=== PATIENT | female | born 1975 | race Caucasian/White ===

== ENCOUNTER 2016-10-12 12:37 | Emergency (ER) | payer BC ==
--- NOTE | 2016-10-12 13:28 | ERNOTE ---
Medical Problem HPI - General Chief Complaint: Upper Extremity Injury/Problem Time Seen by Provider: 10/12/16 12:55 Source: patient Exam Limitations: no limitations - Immun/Allergies/Home Medications Immunizations: IMMUNIZATION HX Immunizations Up to Date Yes History of Influenza Vaccine Yes Hx Pneumococcal Vaccination No Allergies/Adverse Reactions: Allergies theophylline anhydrous [From Reji-Dur] Allergy (Mild, Verified 10/12/16 12:45) Hives latex Adverse Reaction (Mild, Verified 10/12/16 12:45) Itching Home Medications: HOME MEDICATIONS Omeprazole [Prilosec] 20 mg PO BID 09/02/14 [Last Taken Unknown] Atorvastatin Calcium [Lipitor] 10 mg PO DAILY 11/23/15 [Last Taken Unknown] Benazepril HCl [Lotensin] 20 mg PO DAILY 11/23/15 [Last Taken Unknown] HYDROcodone/ACETAMINOPHEN [Hydrocodon-Acetaminoph 7.5-325] 1 each PO TID [Last Taken Unknown] LORazepam [Ativan] 1 mg PO DAILY 11/23/15 [Last Taken Unknown] Sertraline HCl [Zoloft] 50 mg PO DAILY 11/23/15 [Last Taken Unknown] Ibuprofen [Motrin] 800 mg PO TID PRN #21 tab 03/05/16 [Last Taken Unknown] Hydrochlorothiazide 50 mg PO DAILY 09/23/16 [Last Taken Unknown] Meloxicam [Mobic] 15 mg PO DAILY 09/23/16 [Last Taken Unknown] Potassium Citrate [Urocit-K] 20 meq PO BID 09/23/16 [Last Taken Unknown] tiZANidine HCL [Zanaflex] 4 mg PO DAILY 09/23/16 [Last Taken Unknown] Gabapentin 300 mg PO TID #90 capsule 10/12/16 [Last Taken Unknown] - History of Present History Narrative: Patient is here for left arm pain. She has worked at [employer] for over nine years. When she came back from having a hysterectomy in July she was assigned to a different position that involved reaching over head frequently and lifting about 6lbs. Starting the first day she started to have increasing pain that started in the left shoulder (points to trapezius area) and eventually radiated down her arm and into her left thumb. She denies any injury , she is right handed and never had similar symptoms. She saw her doctor in [place], a HEARING SCREEN COORDINATOR in the work comp clinic and another HEARING SCREEN COORDINATOR in [place]. She is frustrated as nobody did any testing and she feels her symptoms are related to the new job. She has tried ibuprofen, hydrocodone without much relieve Review of Systems - Review of Systems Constitutional: Absent: recent illness, fever, chills EYE: Absent: double vision ENT: Absent: nose congestion, sore throat Respiratory: Absent: shortness of breath, cough Cardiology: Absent: chest pain Gastrointestinal/Abdominal: Absent: nausea, vomiting Genitourinary: Present: no symptoms reported Musculoskeletal: Present: See HPI, neck pain Neurological: Present: See HPI. Absent: weakness - Patient's Past Medical History Patient History - Medical: Anxiety, Depression, GERD, Kidney stone Patient History - Cardiac/Respiratory: Hypertension, Hyperlipidemia Patient History - Cancer: No Hx of Cancer Patient History - Surgical Procedures: Hysterectomy, Urology Patient History - Other: None LMP (Calendar): 11/18/15 - Family History Mother Family History - Medical: Diabetes Type 2 Family History - Cardiac/Respiratory: No pertinent hx Father Family History - Medical: Arthritis Family History - Cardiac/Respiratory: Coronary Heart Disease Sister Family History - Medical: No pertinent hx, Hypothyroidism Family History - Cardiac/Respiratory: Hypertension - Social History Living Situations: home Abuse History: No History of abuse Psych History: Hx of Anxiety, Hx of Depression, Current tx/ever been on anti- depressants or anti-anxiety meds Smoking Status: Never smoker Alcohol Use: none Drug Use: none - Immunizations Immunizations Up to Date: Yes Hx Pneumococcal Vaccination: No History of Influenza Vaccine: Yes Physical Exam - Physical Exam General Appearance: Present: wd/wn, alert, no apparent distress, obese Eye Exam: Normal inspection: bilateral Neck: Present: normal inspection, tender lateral - left, muscle spasms, other - decreased ROM on rotation to right. Absent: tender posterior midline Respiratory: Present: no respiratory distress, normal breath sounds, no accessory muscle use, lungs clear Cardiovascular/Chest: Present: regular rate, rhythm, no murmur Back Exam: Present: normal inspection Extremity Exam: Present: normal inspection, non-tender Neurological Exam: Present: alert, oriented, normal mood/affect, no motor/ sensory deficits Skin Exam: Present: normal color, warm/dry ED Progress - Vital Signs Patient's Vital Signs:: I have reviewed the patient's vital signs. Vital Signs: Vital Signs 10/12/16 12:40 Temperature 36.4 C L Pulse Rate 125 H Respiratory 16 Rate Blood Pressure 177/97 O2 Sat by Pulse 99 Oximetry - X-Ray X-Ray #1 X-Ray: c-spine - no acute findings Interpretation: Reviewed by me - Progress/Reassessment Chief Complaint: Upper Extremity Injury/Problem Progress Note-Subjective: 10/12/16 13:33 discussed Xray results and plan Departure - Departure Clinical Impression: Cervical radiculopathy at C6 Disposition: Home self-care Condition: Good Instructions: Cervical Radiculopathy, [id number], Form - Excuse from Work, School, or Physical Activity Additional Instructions: gabapentin: take one pill today, take it twice a day tomorrow and then go to three times a day after that follow up with your doctor as scheduled in three days Referrals: Yifan Barakat MD [Primary Care Provider] - () Prescriptions: Gabapentin 300 mg PO TID #90 capsule
[2016-10-12 13:29] VITALS: BP 168/105
--- OUTSIDE RECORDS SUMMARY | 2016-10-12 13:37 | XMS REPORT | Continuity of Care Document ---
:1975 Author Organization [facility] ([facility]) Address [address] [place] [address] Phone [phone] Care Team Providers Name Role Phone Stanislaw Dover-Micheal Primary Care Provider [phone] Source Comments This disclosure is being made pursuant to the Care Everywhere program, applicable federal and state laws, and may not contain all informaitonavailable regarding this patient.[facility] ([facility]) Active Allergies and Adverse Reactions Allergen Noted Date Severity Reactions Comments Latex 04/30/2013 Rash Theophylline 06/07/2016 Rash Current Medications Prescription Sig. Disp. Refills Start End Date Status Date benazepril 20 mg tablet Take 40 mg by mouth Active daily. leuprolide (LURPON inject 11.25 mg Active DEPOT-3 month) 11.25 mg intramuscularly injection once. HYDROcodone-acetaminoph Take 1-2 tablets by 0 Active en 7.5-325 mg per mouth as needed. 6 tablet LORazepam 1 mg tablet 1 tablet daily. 2 Active 6 SERTraline 100 mg 1 tablet daily. 0 Active tablet 6 atorvastatin 10 mg Take 10 mg by mouth Active tablet every evening. omeprazole 20 mg Take 20 mg by mouth Active enteric coated capsule at bedtime. hydroCHLOROthiazide 50 Take 50 mg by mouth Active mg tablet daily. cetirizine 10 mg tablet Take 10 mg by mouth Active daily. POTASSIUM CITRATE PO Active docusate 100 mg capsule Take 1 capsule (100 30 capsule 3 Active mg total) by mouth 6 2 times daily. HYDROmorphone 2 mg Take 1-2 tablets 60 tablet 0 Active tablet (2-4 mg total) by 6 mouth every 4 hours as needed for pain. sennosides 8.6 mg Take 1-2 tablets 30 tablet 3 Active tablet (8.6-17.2 mg total) 6 by mouth daily as needed. ibuprofen 600 mg tablet Take 1 tablet (600 30 tablet 3 Active mg total) by mouth 6 every 6 hours. acetaminophen 325 mg Take 2 tablets (650 30 tablet 3 Active tablet mg total) by mouth 6 every 6 hours as needed. norethindrone 5 mg Take 1 tablet (5 mg 30 tablet 2 Active tablet total) by mouth 6 daily. estradiol 0.1 mg/24 hr Apply 1 Patch (0.1 8 Patch 11 Active patch mg total) on the 7 skin 2 times weekly. Active Problems Problem Noted Date Chronic pelvic pain in female 05/01/2013 Endometriosis, site unspecified 05/01/2013 Most Recent Encounters Date Type Specialty Providers Description 08/13/2016 Telephone OBG Reproductive Mervat Randhawa MD Chief Comp: Ask-a- nurse 07/28/2016 Office Visit OBG Reproductive Mervat Randhawa MD Dx: Surgical menopause (Primary Dx) Social History Tobacco Use Types Packs/Day Years Used Date Never Smoker Smokeless Tobacco: Never Used Alcohol Use Drinks/Week oz/Week Comments No Last Filed Vital Signs Vital Sign Reading Time Taken Blood Pressure 132/92 07/28/2016 2:29 PM ECOLOGICAL TECHNICAL OFFICER Pulse 132 07/28/2016 2:29 PM ECOLOGICAL TECHNICAL OFFICER Temperature 36.5 C (97.7 F) 07/28/2016 2:29 PM ECOLOGICAL TECHNICAL OFFICER Respiratory Rate 16 06/11/2016 9:00 AM ECOLOGICAL TECHNICAL OFFICER Height 1.651 m (5' 5") 06/09/2016 1:37 PM ECOLOGICAL TECHNICAL OFFICER Weight 102.7 kg (226 lb 6.6 oz) 07/28/2016 2:29 PM ECOLOGICAL TECHNICAL OFFICER Body Mass Index 37.68 07/28/2016 2:29 PM ECOLOGICAL TECHNICAL OFFICER Oxygen Saturation 97% 06/11/2016 8:07 AM ECOLOGICAL TECHNICAL OFFICER Plan of Care Health Maintenance Due Date Last Done Comments Hepatitis B Vaccine (1 of 3 - Primary Series) 1975 Tdap Vaccine 1985 Lipid Disorder Screening 02/12/1992 MMR Vaccine 02/12/1992 Td Vaccine 02/12/1992 Mammogram 2014 Influenza Vaccine: Seasonal (#1) 01/26/2016 Cervical Cancer Screening 05/12/2021 05/12/2016 Results from Last 3 Months Not on file
--- OUTSIDE RECORDS SUMMARY | 2016-10-12 13:37 | XMS REPORT | Continuity of Care Document ---
:1975 Author Organization [facility] [place] [address] Care Team Providers Name Role Phone Clive Barakat Primary Care Provider [phone] Source Comments This disclosure is being made pursuant to the [employer] program and maynot contain all information available regarding this patient.[facility] Active Allergies and Adverse Reactions Allergen Noted Date Severity Reactions Comments Latex 08/18/2016 Unknown Reji-Dur 08/18/2016 Unknown Current Medications Be aware that medications may not be up to date as of this document. Alwaysverify current medications with the patient. Prescription Sig. Disp. Refills Start Date End Date Status sertraline (ZOLOFT) Take 1 tablet 90 tablet 0 08/20/2016 Active 100 MG tablet by mouth daily. omeprazole TAKE 1 CAPSULE 180 capsule 0 09/13/2016 Active (PRILOSEC) 20 MG TWICE A DAY capsule HYDROcodone-acetami Take 1 tablet 90 tablet 0 09/20/2016 Active nophen (NORCO) by mouth every 7.5-325 MG per 8 (eight) tablet hours as needed for Pain Earliest Fill Date: 09/20/16. meloxicam (MOBIC) 1 tab oral 30 tablet 1 09/14/2016 Active 15 MG tablet daily with food. LORazepam (ATIVAN) Take 0.5-1 60 tablet 0 09/20/2016 Active 1 MG tablet tablets (0.5-1 mg total) by mouth 2 (two) times daily as needed for Anxiety. benazepril Take 20 mg by Active (LOTENSIN) 20 MG mouth daily. tablet atorvastatin Take 10 mg by Active (LIPITOR) 10 MG mouth daily. tablet norethindrone Take 5 mg by Active (AYGESTIN) 5 MG mouth daily. tablet tiZANidine Take 1 tablet 30 tablet 0 10/16/2016 Active (ZANAFLEX) 4 MG by mouth every tablet 8 (eight) hours as needed for Muscle spasms or Pain. LORazepam (ATIVAN) Take 0.5-1 60 tablet 0 08/17/2016 Discontinued 1 MG tablet tablets (0.5-1 7 mg total) by mouth 2 (two) times daily as needed for Anxiety. tiZANidine Take 1 tablet 30 tablet 1 08/25/2016 Discontinued (ZANAFLEX) 4 MG by mouth every 7 tablet 8 (eight) hours as needed for Muscle spasms or Pain. levofloxacin Take 1 tablet 10 tablet 0 09/08/2016 (LEVAQUIN) 500 MG by mouth 7 tablet daily. HYDROcodone-acetami Take 1 tablet Discontinued nophen (NORCO) by mouth every 7 7.5-325 MG per 8 (eight) tablet hours as needed for Pain. Active Problems Not on file Most Recent Encounters Date Type Specialty Providers Description 10/11/2016 Refill Family Medicine Kaylin Barakat RN Acute pain of left shoulder (Primary Dx); Neck pain 09/21/2016 Office Visit Family Clive Sharif MD Left wrist pain (Primary Dx); Paresthesia of arm; Acute pain of left shoulder 09/16/2016 Refill Family Medicine Naomy Preciado, RMA 09/14/2016 Telephone Sports Medicine Milla Sinclair 09/13/2016 Refill Family Naomy Cleary, RMA 09/12/2016 Refill Family Clive Sharif MD 09/08/2016 Orders Only Family Clive Sharif MD 09/07/2016 Office Visit Sports Medicine Clive Barakat MD Chronic upper back Daquan Donaldson L, pain (Primary Dx); DO Trapezius strain, unspecified laterality, initial encounter; Rotator cuff tendinitis, unspecified laterality; Spasm of muscle, back 09/07/2016 Scanned Document Physical Therapy Provider, Not In System 09/02/2016 Telephone Sports Medicine Provider, Not In Shoulder Pain; Neck System Pain 08/30/2016 Telephone Family Medicine Kaylin Barakat RN Shoulder Pain 08/30/2016 Refill Family Naomy Cleary, RMA 08/25/2016 Office Visit Family Clive Sharif MD Acute pain of left shoulder (Primary Dx); Neck pain 08/23/2016 Scanned Document Provider, Not In System 08/20/2016 Refill Family Medicine Naomy Preciado, RMLaury 08/18/2016 Office Visit Family Medicine Clive Barakat MD Acute non- recurrent maxillary sinusitis (Primary Dx) 08/17/2016 Refill Family Medicine Naomy Preciado, RMA 08/17/2016 Refill Family Medicine Naomy Preciado, RMA Social History Tobacco Use Types Packs/Day Years Used Date Never Smoker Smokeless Tobacco: Never Used Alcohol Use Drinks/Week oz/Week Comments No Last Filed Vital Signs Vital Sign Reading Time Taken Blood Pressure 140/97 09/21/2016 2:26 PM CDT Pulse 138 09/21/2016 2:26 PM CDT Temperature 36.7 C (98 F) 09/21/2016 2:26 PM CDT Respiratory Rate 20 08/25/2016 4:05 PM SUPPLY CRIB ATTENDANT Height 1.651 m (5' 5") 09/07/2016 10:30 AM CDT Weight 102.513 kg (226 lb) 09/21/2016 2:26 PM CDT Body Mass Index 37.61 09/21/2016 2:26 PM CDT Oxygen Saturation 97% 09/21/2016 2:26 PM CDT Plan of Care Date Type Specialty Providers Description 10/15/2016 Appointment Family Medicine Clive Barakat MD [address] [address] [phone] (Fax) 11/11/2016 Appointment Neurology Clive Barakat MD [address] [address] [phone] (Fax) Pawel Willett MD [facility] [address] [phone] (Fax) Health Maintenance Due Date Last Done Comments Tetanus/Pertussis (1 - Tdap) 1993 Pap Smear 1995 Influenza Immunization (#1) 2016 Results from Last 3 Months Not on file
== END 2016-10-12 13:53 | disposition home or self-care (01) ==
LOC: ER 12:37
DX: M54.12 Radiculopathy, cervical region (principal)